=== PATIENT | male | born 1980 | race Caucasian/White ===

== ENCOUNTER → 2018-12-21 | Day surgery (SDC) | payer BC, OTHER ==
[2018-12-21] VITALS (11 sets, daily range): BP systolic 96–133; BP diastolic 52–89
[~2018-12-21] VITALS: Ht 162.6 cm; Wt 72.6 kg
[~2018-12-21] MED LIST: Alfentanil 2ml Inj ONE; Atropine Sulfate 0.4mg/ml inj IVP PRN; D5 1/2NS 1,000 ML IV SCH; Dexamethasone 4mg/ml vial ONE; DiphenhydrAMINE 50mg/ml Inj IVP PRN; HYDROcodone/Acetamin 5/325 tab ORAL PRN; HYDROcodone/Acetamin 7.5/325 tab ORAL PRN; HYDROmorphone 1mg/ml Carpuject SUBQ PRN; Hydromorphone 0.5mg/0.5ml inj IVP PRN; Iothalamate Meglumine 60% 30ML INJ ONE; Ketorolac 30mg Inj IV ONE; Ketorolac 30mg Inj IV PRN; LORazepam Inj 2mg/ml 1ml IV PRN; LR 1000ml 1,000 ML IVLG SCH; LR 1000ml ONE; Labetalol 5mg/ml 20ml vial IV PRN; Lidocaine 1% MPF 10mg/ml 5ml ONE; Meperidine 50mg/ml Inj(FOR RIGORS ONLY) IVP PRN; Metoclopramide 10mg/2ml Inj IVP PRN; Midazolam 2mg/2ml Inj IVP PRN; NS Irrig 1000ml ONE; NS Irrig 4000ml IRRIG ONE; Propofol 200mg/20ml IV ONE; Sodium Chloride 10ml vial INJ ONE; Sterile Water For Irrig 2000ml IRRIG ONE; Tylenol #3 tab (300mg/30mg) ORAL PRN; fentaNYL 100 mcg/2 mL IV PRN; oxyCODONE HCL/Acetaminophen 5/325mg ORAL PRN
--- NOTE | 2018-12-21 11:50 | NUR ---
ED Nurse Note: pt walked in to ER from Dr. Charles for kidney stone removal surgery. pt aao x4 and ambulatory. abdominal pain 6/10 reported. skin clean and intact. calm and cooperative. 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
--- NOTE | 2018-12-21 12:07 | Emergency Room Report ---
History of Present Illness General Chief Complaint: General Complaint Source: Patient Present Illness HPI Patient presents with right flank pain. Been going on for 1 week. Is been severe. He was sent here to have surgical removal of ureteral stone by Dr. Walker. He denies any fevers, chills, nausea, vomiting, diarrhea. He took Deer earlier. The pain now is 7/10. The pain is aching, left flank radiating to his groin. It is been constant. The Deer has helped. Denies any upper respiratory symptomatology. No dysuria or hematuria. No prior cardiac history. Occasionally drinks alcohol. Smokes cigarettes. No sore throat, chest pain, palpitations, shortness of breath, joint pain, rashes, depression, anxiety, visual changes, headache. Allergies: Coded Allergies: No Known Allergies (Unverified , 12/21/18) Patient History Past Medical History: see triage record Past Surgical History: other - hernia surgery Social History: Reports: smoking, alcohol use Social History Narrative from home Reviewed Nursing Documentation: PMH: Agreed; PSxH: Agreed Nursing Documentation-PMH Past Medical History: No History, Except For Review of Systems All Other Systems: negative except mentioned in HPI Physical Exam Vital Signs Date Time Temp Pulse Resp B/P (MAP) Pulse Ox O2 Delivery O2 Flow Rate FiO2 12/21/18 11:51 98.2 68 16 119/74 (89) 97 Room Air Sp02 EP Interpretation: reviewed, normal General Appearance: well appearing, no apparent distress, GCS 15, non-toxic Head: normocephalic Eyes: bilateral eye normal inspection, bilateral eye PERRL ENT: moist mucus membranes Neck: supple Respiratory: lungs clear, normal breath sounds Cardiovascular #1: regular rate, rhythm Cardiovascular #2: 2+ radial (R) Gastrointestinal: normal inspection, normal bowel sounds, non tender, no mass, non-distended Genitourinary: no CVA tenderness Musculoskeletal: back normal, gait/station normal, normal range of motion Neurologic: alert, oriented x3, grossly normal Psychiatric: mood/affect normal Skin: no rash Medical Decision Making Diagnostic Impression: Primary Impression: Right ureteral calculus ER Course For right flank pain with a history of a ureteral stone causing blockage. Differential includes ureteral obstruction, urinary tract infection, pyelonephritis amongst others. Preoperative labs need to be obtained. No x- ray of the chest is necessary as the patient has no cardiac history. EKG without abnormality. Labs unremarkable. Patient somewhat improved with Toradol. Patient taken to the operating room. Laboratory Tests Test 12/21/18 12:18 White Blood Count 6.0 K/UL (4.8-10.8) Red Blood Count 5.30 M/UL (4.70-6.10) Hemoglobin 16.2 G/DL (14.2-18.0) Hematocrit 47.0 % (42.0-52.0) Mean Corpuscular Volume 89 FL (80-99) Mean Corpuscular Hemoglobin 30.6 PG (27.0-31.0) Mean Corpuscular Hemoglobin Concent 34.5 G/DL (32.0-36.0) Red Cell Distribution Width 13.3 % (11.6-14.8) Platelet Count 250 K/UL (150-450) Mean Platelet Volume 5.9 FL (6.5-10.1) L Neutrophils (%) (Auto) 58.3 % (45.0-75.0) Lymphocytes (%) (Auto) 29.3 % (20.0-45.0) Monocytes (%) (Auto) 9.6 % (1.0-10.0) Eosinophils (%) (Auto) 1.0 % (0.0-3.0) Basophils (%) (Auto) 1.8 % (0.0-2.0) Prothrombin Time 11.0 SEC (9.30-11.50) Prothrombin Time INR 1.0 (0.9-1.1) PTT 29 SEC (23-33) Urine Color Pale yellow Urine Appearance Clear Urine pH 8 (4.5-8.0) Urine Specific [place] 1.010 (1.005-1.035) Urine Protein Negative (NEGATIVE) Urine Glucose (UA) Negative (NEGATIVE) Urine Ketones Negative (NEGATIVE) Urine Blood Negative (NEGATIVE) Urine Nitrite Negative (NEGATIVE) Urine Bilirubin Negative (NEGATIVE) Urine Urobilinogen Normal MG/DL (0.0-1.0) Urine Leukocyte Esterase 1+ (NEGATIVE) H Urine RBC 0 /HPF (0 - 0) Urine WBC 0-2 /HPF (0 - 0) Urine Squamous Epithelial Cells None /LPF (NONE/OCC) Urine Bacteria None /HPF (NONE) Sodium Level 141 MMOL/L (136-145) Potassium Level 4.4 MMOL/L (3.5-5.1) Chloride Level 102 MMOL/L (98-107) Carbon Dioxide Level 30 MMOL/L (21-32) Anion Gap 9 mmol/L (5-15) Blood Urea Nitrogen 13 mg/dL (7-18) Creatinine 1.1 MG/DL (0.55-1.30) Estimate Glomerular Filtration Rate > 60 mL/min (>60) Glucose Level 95 MG/DL (74-106) Calcium Level 9.4 MG/DL (8.5-10.1) Total Bilirubin 0.7 MG/DL (0.2-1.0) Aspartate Amino Transferase (AST) 27 U/L (15-37) Alanine Aminotransferase (ALT) 33 U/L (12-78) Alkaline Phosphatase 73 U/L (46-116) Total Protein 8.6 G/DL (6.4-8.2) H Albumin 4.3 G/DL (3.4-5.0) Globulin 4.3 g/dL Albumin/Globulin Ratio 1.0 (1.0-2.7) Lipase 91 U/L (73-393) EKG Diagnostic Results Rate: bradycardiac Rhythm: NSR ST Segments: no acute changes Rhythm Strip Diag. Results EP Interpretation: yes Rhythm: no PVC's, no ectopy, other - joelle 57 Last Vital Signs Date Time Temp Pulse Resp B/P (MAP) Pulse Ox O2 Delivery O2 Flow Rate FiO2 12/21/18 12:42 98.0 84 17 121/87 100 Room Air Status: improved Disposition: PLACE IN OBSERVATION - To operating room Condition: Serious Conner Haji MD Dec 21, 2018 12:07
--- NOTE | 2018-12-21 12:42 | NUR ---
ED Nurse Note: pt went down to OR by Sahil in stable condition.
--- NOTE | 2018-12-21 13:03 | Anethesia Preoperative Eval ---
Anesthesia Pre-op PMH/ROS General Date of Evaluation: Dec 21, 2018 Time of Evaluation: 12:56 Anesthesiologist: Annabelle ASA Score: ASA 2 Mallampati Score Class I : Soft palate, uvula, fauces, pillars visible Class II: Soft palate, uvula, fauces visible Class III: Soft palate, base of uvula visible Class IV: Only hard plate visible Mallampati Classification: Class II Surgeon: Aaron Diagnosis: Renolithiasis Surgical Procedure: Cystoscopy Anesthesia History: none Social History: current smoker, alcohol use Family History: no anesthesia problems Allergies: Coded Allergies: No Known Allergies (Unverified , 12/21/18) Medications: see eMAR Patient NPO?: Yes Anesthesia Pre-op Phys. Exam Physician Exam Last Vital Signs Date Time Temp Pulse Resp B/P (MAP) Pulse Ox O2 Delivery O2 Flow Rate FiO2 12/21/18 12:42 98.0 84 17 121/87 100 Room Air Constitutional: NAD Neurologic: CN 2-12 intact Cardiovascular: RRR Respiratory: CTA Gastrointestinal: S/NT/ND Airway Exam Mallampati Score: Class II MO: full ROM: full Teeth: intact Anesthesia Pre-op A/P Labs Hematology Test 12/21/18 12:18 White Blood Count Pending Red Blood Count Pending Hemoglobin Pending Hematocrit Pending Mean Corpuscular Volume Pending Mean Corpuscular Hemoglobin Pending Mean Corpuscular Hemoglobin Concent Pending Red Cell Distribution Width Pending Platelet Count Pending Mean Platelet Volume Pending Neutrophils (%) (Auto) Pending Lymphocytes (%) (Auto) Pending Monocytes (%) (Auto) Pending Eosinophils (%) (Auto) Pending Basophils (%) (Auto) Pending Coagulation Test 12/21/18 12:18 Prothrombin Time Pending Prothromb Time International Ratio Pending Activated Partial Thromboplast Time Pending Chemistry Test 12/21/18 12:18 Sodium Level Pending Potassium Level Pending Chloride Level Pending Carbon Dioxide Level Pending Blood Urea Nitrogen Pending Creatinine Pending Estimat Glomerular Filtration Rate Pending Glucose Level Pending Calcium Level Pending Total Bilirubin Pending Aspartate Amino Transf (AST/SGOT) Pending Alanine Aminotransferase (ALT/SGPT) Pending Alkaline Phosphatase Pending Total Protein Pending Albumin Pending Globulin Pending Lipase Pending Risk Assessment & Plan Assessment: ASA 2 Plan: GA, SED Status Change Before Surgery: No Pre-Antibiotics Dru gram ancef IV Given Within 1 Hr of Incision: Yes Time Given: 13:16 Jourdan Alanis MD Dec 21, 2018 13:03
[2018-12-21 13:05] LABS: APPEARANCE,URINE CLEAR; BILIRUBIN, URINE NEGATIVE (NEGATIVE); COLOR,URINE PALE YELLOW; GLUCOSE, URINE (UA) NEGATIVE (NEGATIVE); KETONES,URINE NEGATIVE (NEGATIVE); LEUKOCYTE ESTERASE ,URINE 1+ (NEGATIVE); NITRITE,URINE NEGATIVE (NEGATIVE); PH,URINE 8 (4.5-8.0); PROTEIN,URINE NEGATIVE (NEGATIVE); UROBILINOGEN,URINE NORMAL MG/DL (0.0-1.0)
--- NOTE | 2018-12-21 13:08 | Pre-Procedure Note/Attestation ---
Pre-Procedure Note/Attestation Complete Prior to Procedure Planned Procedure: right Procedure Narrative: Right RIRS Stent placement RPG laser Indications for Procedure Pre-Operative Diagnosis: right distal stone Attestation I attest that I discussed the nature of the procedure; its benefits; risks and complications; and alternatives (and the risks and benefits of such alternatives ), prior to the procedure, with the patient (or the patient's legal sales representative trainee). I attest that, if there was a reasonable possibility of needing a blood transfusion, the patient (or the patient's legal sales representative trainee) was given the [facility] standardized written summary, pursuant to the [place] Blood Safety Act ([place] Health and Safety Code # 1645, as amended). I attest that I re-evaluated the patient just prior to the surgery and that there has been no change in the patient's H&P, except as documented below: Rafita Walker MD Dec 21, 2018 13:08
[2018-12-21 13:16] LABS: ANION GAP 9 mmol/L (5-15); BLOOD UREA NITROGEN 13 mg/dL (7-18); CALCIUM 9.4 MG/DL (8.5-10.1); CARBON DIOXIDE 30 MMOL/L (21-32); CHLORIDE 102 MMOL/L (98-107); CREATININE 1.1 MG/DL (0.55-1.30); POTASSIUM 4.4 MMOL/L (3.5-5.1); SODIUM 141 MMOL/L (136-145)
[2018-12-21 13:20] LABS: ALANINE AMINOTRANSFERASE 33 U/L (12-78); ALBUMIN 4.3 G/DL (3.4-5.0); ALKALINE PHOSPHATASE 73 U/L (46-116); ASPARTATE AMINO TRANSFERASE 27 U/L (15-37); BILIRUBIN,TOTAL 0.7 MG/DL (0.2-1.0)
[2018-12-21 13:21] LABS: BASOPHILS % (AUTO) 1.8 % (0.0-2.0); HEMOGLOBIN 16.2 G/DL (14.2-18.0); LYMPHOCYTES % (AUTO) 29.3 % (20.0-45.0); MEAN CORPUSCULAR VOLUME 89 FL (80-99); MONOCYTES % (AUTO) 9.6 % (1.0-10.0); NEUTROPHILS % (AUTO) 58.3 % (45.0-75.0); PLATELET COUNT 250 K/UL (150-450); RED CELL DISTRIBUTION WIDTH 13.3 % (11.6-14.8)
--- NOTE | 2018-12-21 13:55 | Brief Operative Note ---
Immediate Post Operative Note Operative Note Pre-op Diagnosis: right distal stone Procedure: RIRS Laser stone manipulation stent placement RPG Post-op Diagnosis: same Post-op Diagnosis: same as pre-op Surgeon: Stevie Walker Anesthesia: general Specimen: yes Complications: none Condition: stable Fluids: 500 Estimated Blood Loss: minimal Implant(s) used?: No Rafita Walker MD Dec 21, 2018 13:55
--- NOTE | 2018-12-21 14:09 | Immediate Post-Op Evaluation ---
Immediate Post-Op Evalulation Immediate Post-Op Evalulation Procedure: Cystoscopy, R Ureteral Lithotripsy Date of Evaluation: Dec 21, 2018 Time of Evaluation: 14:19 IV Fluids: 1300 LR Blood Products: 0 Estimated Blood Loss: 20 Urinary Output: 0 Blood Pressure Systolic: 109 Blood Pressure Diastolic: 64 Pulse Rate: 62 Respiratory Rate: 16 O2 Sat by Pulse Oximetry: 100 Temperature (Fahrenheit): 97 Pain Score (1-10): 2 Nausea: No Vomiting: No Complications 0 Patient Status: awake, reacts, patent, extubated, none Hydration Status: adequate Dru Gram Ancef IV Given Within 1 Hr of Incision: Yes Time Given: 13:16 Jourdan Alanis MD Dec 21, 2018 14:09
--- NOTE | 2018-12-21 14:10 | 48 Hour Post Anesthesia Eval ---
Post Anesthesia Evaluation Procedure: Cystoscopy, R Ureteral Lithotripsy Date of Evaluation: Dec 21, 2018 Time of Evaluation: 16:23 Blood Pressure Systolic: 118 0: 82 Pulse Rate: 73 Respiratory Rate: 18 Temperature (Fahrenheit): 98.2 O2 Sat by Pulse Oximetry: 99 Airway: patent Nausea: No Vomiting: No Pain Intensity: 2 Hydration Status: adequate Cardiopulmonary Status: Stable Mental Status/LOC: patient returned to baseline Follow-up Care/Observations: 0 Post-Anesthesia Complications: 0 Follow-up care needed: ready to discharge Jourdan Alanis MD Dec 21, 2018 14:10
--- NOTE | 2018-12-21 14:43 | Diagnostic Imaging Report ---
INDICATION: Pain, intraoperative TECHNIQUE: Intraoperative imaging Fluoroscopy time: 39 seconds Total dose: 0.50216 mGym2 Total number of images: 4 COMPARISON: None FINDINGS: Intraoperative images demonstrate minimal opacification of the right distal ureter which is normal in caliber. Subsequent images document placement of a right nephroureteral stent, in good position IMPRESSION: Intraoperative imaging, as described
--- NOTE | 2018-12-21 22:15 | Operative Note - Dictated ---
DATE OF OPERATION: 12/21/2018 PREOPERATIVE DIAGNOSES: 1. Right distal ureteral stone. 2. Hydronephrosis. POSTOPERATIVE DIAGNOSES: 1. Right distal ureteral stone. 2. Hydronephrosis. OPERATIONS: 1. Cystoscopy. 2. Retrograde pyelogram. 3. Retrograde intrarenal surgery with ureteroscopy and laser lithotripsy of the stone. 4. Double-J stent placement. OPERATED BY: Rafita Walker M.D. ANESTHESIA: General. FINDINGS: A 3 to 4 mm stone in the distal ureter with impaction. INDICATIONS FOR SURGERY: The patient is suffering from a left renal insult from a right renal colic for prolonged period of time. CT urogram confirmed the diagnosis. Treatment options were explained in great length including the potential complications. He signed a consent. PROCEDURE IN DETAIL: He was brought to the operating room, placed in lithotomy position, and prepped and draped in standard fashion. Cystoscope was introduced into the bladder. Right ureter was cannulated. Retrograde showed distal ureteral stone. Using a 7 mm ureteroscope, the 01:13 was introduced. Stone was found and destroyed with 360 micron fiber holmium laser. The rest of the fragments were removed for the pathologic examination. Double-J stent, 6 x 26 was placed and left indwelling. The patient tolerated the procedure well. Sponge count and instrument count was correct. Rafita Wakler M.D. DR: CLAUDETTE JOB#: [id number] CC:
--- NOTE | 2018-12-22 16:42 | Cardiology Report ---
APPROVED REPORT EKG Measurement Heart [id number] [place] 178P [id number] Sinus bradycardia Right superior axis deviation Abnormal ECG
== END | disposition home or self-care (01) ==
LOC: EDBEDREQ 12:07 → EMR 12:20 → EDBEDREQ 13:13 → SUR 13:23
DX: N13.2 Hydronephrosis with renal and ureteral calculous obstruction (principal); F17.200 Nicotine dependence, unspecified, uncomplicated; R00.1 Bradycardia, unspecified
CPT/HCPCS: 36415; 52005; 52214; 52332; 74420; 76000; 80053; 81003; 83690; 85025; 85610; 85730; 86850; 86900; 86901; 93005; 96374; 99285; J0690; J1100; J1170; J1885; J1940; J2250; J2405; J2704; J3490; Q9961; 94003; 94150